=== PATIENT | female | born 1985 | race Hispanic/Latino ===

== ENCOUNTER 2016-09-03 12:45 | Emergency (ER) | payer OTHER ==
[~2016-09-03] VITALS: Ht 157.5 cm; Wt 77.3 kg
[~2016-09-03 12:45] MED LIST: BUTA1CAP39 PO; DOXY100T2 PO; HYDR50CA PO; LISI10TA PO; OMEP20TA86 PO
[2016-09-03 12:48] VITALS: BP 157/110; PULSE 104; RESP 15; O2SAT 100
--- NOTE | 2016-09-03 13:14 | ED.REPORT ---
HPI-Extremity Problem Lower Date of Service Sep 03, 2016 ED Provider: Manjeet Soler MD This is a 30 year old female presenting to the emergency department complaining of R knee swelling that began 3 days ago. Associated symptoms include numbness, fever, and chills. Denies nausea, SOB, vomiting, constipation, diarrhea, headache, cough, abdominal pain, or rashes. Nursing Notes Stated Complaint: RECHECK CELLULITIS/DVT Chief Complaint: Extremity Trauma Nursing Notes Reviewed: Yes Allergies: Coded Allergies: Penicillins (Verified Allergy, Severe, Anaphylaxis, 09/03/16) Scheduled Doxycycline Hyclate (Doxycycline Hyclate) 100 Mg Tablet 100 MG PO BID Lisinopril (Lisinopril) 10 Mg Tablet 10 MG PO DAILY Lisinopril (Lisinopril) 10 Mg Tablet 10 MG PO DAILY Omeprazole (Omeprazole) 20 Mg Tablet.dr 20 MG PO BID Scheduled PRN Butalbital/Acetamin/Caff 50-300-40 mg (Fioricet 50-300-40 mg) 1 Each Capsule 1 CAPSULE PO Q4H PRN PRN Headache Hydroxyzine Pamoate (Vistaril) 50 Mg Capsule 50 MG PO TID PRN PRN For Anxiety General Time Seen by MD: 13:07 Chief Complaint Knee injury right Hx Obtained From: Patient Arrived By: Walk-in Onset Occurred: 3 days ago Symptom Duration: Since onset Severity: Current: Mild Pertinent Negative: Pt denies other symptoms Recent Healthcare: No recent doctor visit, No recent hospitalization Similar Sx Previous: No Past Medical History Past Medical History IV drug use Reports: Hypertension Past Surgical History None reported Smoking History Current Some Day Smoker Social History Alcohol Use: "Social" Drug Use: IV drugs, Meth, THC Other Social History: Local resident Ambulatory Status Independent Review of Systems Constitutional: Denies: Chills, Fever Musculoskeletal: Reports: Extremity pain, Extremity swelling Skin: Reports Rash Neurologic: Denies: Headache Complete sys rev & neg: except as marked. GI: Denies: Abdominal pain, Nausea, Vomiting Physical Exam Initial Vital Signs Vital Signs (First) Date Time Temp Pulse Resp B/P Pulse Ox O2 Delivery O2 Flow Rate FiO2 09/03/16 12:48 36.7 104 15 157/110 100 Room Air Initial VS: Reviewed General/Constitutional: Well-developed, Well-nourished Head / Eyes: Atraumatic, Normocephalic, PERRL ENT: Mucous membranes moist, Conjunctiva normal, No scleral icterus Neck: Supple, Non-tender, Full range of motion Respiratory: Breath sounds normal, Clear to auscultation, No respiratory distress Cardiovascular: Regular rate & rhythm, Heart sounds normal, Intact distal pulses Abdomen / GI: Soft, Non-tender, No guarding, No rebound, No distention Upper Extremities: Vascular intact, Neuro intact, No swelling, No tenderness Skin: Warm, Dry, No cyanosis Neurologic: Alert, Oriented, Nonfocal Psychiatric: Mood/affect normal, Behavior normal, Normal thought content Lower Extremity / Pelvis / MS: Neurologic intact, Vascular intact Ankle / Foot: Full range of motion, Neurologic intact, Vascular intact Interpretation & Diagnostics VENOUS DUPLEX IMPRESSION: 1. No deep venous thrombosis identified within the right lower extremity. 2. Small joint effusion and Garg's cyst present. Dictated by: Julio STARKEY Interpreted: Otilia Gaytan MD on 09/03/2016 at 15:39 Transcribed by: JODI on 09/03/2016 at 15:40 Lab Results Interpretation Result Diagram: 09/03/16 1354 09/03/16 1354 Test 09/03/16 13:54 White Blood Count 9.4th/mm3 (3.8-10.1) Red Blood Count 3.94mil/mm3 (3.90-5.20) Hemoglobin 12.0g/dL (12.0-15.6) Hematocrit 35.6% (35.0-46.0) Mean Corpuscular Volume 90.4fL (81-100) Mean Corpuscular Hemoglobin 30.5pg (27.0-35.0) Mean Corpuscular Hemoglobin Concent 33.7% (32.0-37.0) Red Cell Distribution Width 13.1% (12.3-15.4) Platelet Count 356bil/L (150-400) Neutrophils (%) (Auto) 66.2% (40-74) Lymphocytes (%) (Auto) 24.6% (14-46) Monocytes (%) (Auto) 6.4% (4-12) Eosinophils (%) (Auto) 2.5% (0-5) Basophils (%) (Auto) 0.2% (0-3) Sodium Level 134mEq/L (134-144) Potassium Level 3.7mEq/L (3.5-5.2) Chloride Level 98mEq/L (97-108) Carbon Dioxide Level 27mmol/L (18-29) Blood Urea Nitrogen 11mg/dL (6-20) Creatinine 0.53mg/dL (0.57-1.00) Estimat Glomerular Filtration Rate 197mL/min (>59) Glucose Level 95mg/dL (60-99) Calcium Level 8.5mg/dL (8.5-10.1) Total Bilirubin 0.3mg/dL (0.0-1.2) Aspartate Amino Transf (AST/SGOT) 16U/L (0-50) Alanine Aminotransferase (ALT/SGPT) 14U/L (0-32) Alkaline Phosphatase 69U/L (25-150) C-Reactive Protein 0.5mg/dL (0.0-0.5) Total Protein 6.4g/dL (6.4-8.4) Albumin 3.8g/dL (3.4-5.0) Hold Shirley Top Tube Received (Received) Re-Eval/Medical Decision Med Decision/Clinical Course 30-year-old female IV drug user presenting with right knee swelling. Ultrasound confirms Garg's cyst. No blood clot. Labs normal inflammatory markers do not suspect infection. Recommend follow-up with primary doctor. Return precautions. Re-Evaluation/Progress : Time of Eval: 15:00 Re-Evaluation/Progress Note: Discussed lab results and plan for discharge, pt understands and agrees with plan, all questions addressed Counseled Regarding: Diagnosis, Lab results, Need for follow-up, When/why to return to ED Discharge & Departure Impression: Primary Impression: Garg's cyst of knee Laterality: right Qualified Code: M71.21 - Synovial cyst of popliteal space [Garg], right knee Disposition: Home Discharge Condition All VS Reviewed: Yes Condition: Stable Additional Instructions: Your ultrasound was reassuring, a dangerous cause for your symptoms was not identified today, you have a garg's cyst. Follow-up with your primary care provider, call today to schedule an appointment. Return to the emergency department for any new or worsening symptoms Referrals: [facility] Scribe Attestation Portions of this note were transcribed by Qamar Aquino. I, Dr. Soler personally performed the history, physical exam and medical decision-making; I reviewed and confirmed the accuracy of the information in the transcribed note. Signed by: zoë Diaz. 09/03/2016, 15:00. Manjeet Soler MD Sep 03, 2016 13:14 QAMAR AQUINO Sep 03, 2016 13:24
[2016-09-03 14:03] LABS: BASOPHILS % (AUTO) 0.2 % (0-3); EOSINOPHILS % (AUTO) 2.5 % (0-5); MONOCYTES % (AUTO) 6.4 % (4-12); Mean Corpuscular Hemoglobin 30.5 pg (27.0-35.0); Mean Corpuscular Volume 90.4 fL (81-100); NEUTROPHILS % (AUTO) 66.2 % (40-74); Platelet Count 356 bil/L (150-400)
--- NOTE | 2016-09-03 15:40 | DRSVH ---
PROCEDURE: US VEINOUS LEG DUPLEX UNILATERAL, RIGHT INDICATIONS: RLE swelling TECHNIQUE: Real-time imaging, as well as color and pulse Doppler interrogation, were performed of the lower extr emity deep veins from the inguinal ligament to the popliteal fossa. COMPARISON: None. FINDINGS: The deep veins are normally compressible, and free of intraluminal thrombus. Color and pu lse Doppler demonstrate normal phasic intraluminal flow. There is normal augmentation response to di stal compression maneuver. Small joint effusion and Garg's cyst present. IMPRESSION: 1. No deep venous thrombosis identified within the right lower extremity. 2. Small joint effusion and Garg's cyst present. Dictated by: Julio STARKEY Interpreted: Otilia Gaytan MD on 09/03/2016 at 15:39 Transcribed by: JODI on 09/03/2016 at 15:40 Approved by: Otilia Gaytan MD, PhD on 09/03/2016 at 16:59
== END 2016-09-03 15:25 | disposition home or self-care (01) ==
LOC: SED 12:45
DX: M71.21 Synovial cyst of popliteal space [Baker], right knee (principal); I10 Essential (primary) hypertension; F17.200 Nicotine dependence, unspecified, uncomplicated; F19.20 Other psychoactive substance dependence, uncomplicated; Z88.0 Allergy status to penicillin

== ENCOUNTER 2016-09-09 09:40 | Emergency (ER) | payer OTHER ==
[~2016-09-09] VITALS: Ht 157.5 cm; Wt 77.3 kg
[2016-09-09 09:46] VITALS: BP 170/124; PULSE 101; RESP 18; O2SAT 100
--- NOTE | 2016-09-09 11:21 | ED.REPORT ---
HPI-Chest Pain Under 40 Date of Service Sep 09, 2016 ED Provider: Santos Wiley DO History of Present Illness: Sakshi Mcleod is a 30 year old woman with a PMH of HTN, anxiety, and IV drug use who presents with a 1 week history of substernal chest pain with radiation to the left axilla and left upper back. She relates that this pain is worse with exertion, but is not aggravated by deep inspiration. She has no family history of sudden cardiac . She states that she has been trying to cut down on her drug use, and her last usage was a few days ago. She does not have a history of endocarditis. She further complains of an enlargin garg's cyst on her right knee, which is making it increasingly difficult to walk without pain. She does not have a PCP. Nursing Notes Stated Complaint: CYST Chief Complaint: Chest Pain Nursing Notes Reviewed: Yes Allergies: Coded Allergies: Penicillins (Verified Allergy, Severe, Anaphylaxis, 09/03/16) Scheduled Doxycycline Hyclate (Doxycycline Hyclate) 100 Mg Tablet 100 MG PO BID Lisinopril (Lisinopril) 10 Mg Tablet 10 MG PO DAILY Lisinopril (Lisinopril) 10 Mg Tablet 10 MG PO DAILY Omeprazole (Omeprazole) 20 Mg Tablet.dr 20 MG PO BID Scheduled PRN Butalbital/Acetamin/Caff 50-300-40 mg (Fioricet 50-300-40 mg) 1 Each Capsule 1 CAPSULE PO Q4H PRN PRN Headache Hydroxyzine Pamoate (Vistaril) 50 Mg Capsule 50 MG PO TID PRN PRN For Anxiety General Time Seen by MD: 10:30 Chief Complaint Chest pain Hx Obtained From: Patient Sudden in Onset?: No Onset Occurred: 1 week ago Context of Onset: Amphetamine use Symptom Duration: Waxes and wanes Location: : Chest left Quality: Aching, Throbbing Radiation: : Back Severity: Current: Mild Severity: Maximum: Moderate Recent Healthcare: No recent doctor visit Similar Sx Previous: No Risk Factors )( CAD Risk Stratification Amphetamine Hypertension TAD Risk Stratification No 1st degree relative, No Aortic valve disease, No Coarctation of aorta, No Ruthy-Danlos syndrome, No High intensity wt lifting, No Hypertension, No Inflamm dx / vasculitis, No Loeys-Aubrey syndrome, No Marfan's syndrome, No Other genetic predisp, No Pre-exist aortic aneurysm, No , No Turners Syndrome )( PE Risk Stratification No Coagulation Disorder, No Estrogen Medicine / BCP's, No Topock, No Immobilization, No Malignancy, No Other, No , No , No Previous DVT, No Previous PE, No Surgery Last 60 Days, No Trauma Past Medical History Past Medical History IV drug use HTN Anxiety Reports: Hypertension Past Surgical History None reported Smoking History Current Some Day Smoker Social History Alcohol Use: "Social" Drug Use: IV drugs, Meth, THC Other Social History: Local resident Ambulatory Status Independent Review of Systems Cardiovascular: Reports: Chest pain, Dyspnea on exertion Musculoskeletal: Reports: Back pain, Joint pain, Joint swelling Complete sys rev & neg: except as marked. Physical Exam Physical Exam Notes: Gen: A/O x3 pleasant cooperative woman in mild acute distress secondary to chest pain Neck: Supple, non-tender, no thyromegaly, no lymphadenopathy HEENT: PERRL, EOMI, no scleral icterus CV: RRR, no murmurs rubs or gallops Resp: Lungs CTA BL, no wheezing rales or rhonchi Abdomen: Soft, non-tender, no organomegaly Extr: No cyanosis clubbing or edema, muscle knots and tenderness in left suprascapular region Neuro: CN 2-12 grossly intact, no focal neurologic deficit Psych: Mood pleasant and appropriate, some anxiety. Initial Vital Signs Vital Signs (First) Date Time Temp Pulse Resp B/P Pulse Ox O2 Delivery O2 Flow Rate FiO2 09/09/16 09:46 36.9 101 18 170/124 100 Room Air Initial VS: Reviewed Interpretation & Diagnostics Lab Results Interpretation Result Diagram: 09/09/16 1149 09/09/16 1149 Test 09/09/16 11:07 09/09/16 11:49 09/09/16 11:50 09/09/16 12:29 Hold Urine Received (Received) White Blood Count 9.3th/mm3 (3.8-10.1) Red Blood Count 3.85mil/mm3 (3.90-5.20) Hemoglobin 11.7g/dL (12.0-15.6) Hematocrit 35.0% (35.0-46.0) Mean Corpuscular Volume 90.9fL (81-100) Mean Corpuscular Hemoglobin 30.4pg (27.0-35.0) Mean Corpuscular Hemoglobin Concent 33.4% (32.0-37.0) Red Cell Distribution Width 13.4% (12.3-15.4) Platelet Count 327bil/L (150-400) Neutrophils (%) (Auto) 64.4% (40-74) Lymphocytes (%) (Auto) 22.2% (14-46) Monocytes (%) (Auto) 8.6% (4-12) Eosinophils (%) (Auto) 4.4% (0-5) Basophils (%) (Auto) 0.2% (0-3) Sodium Level 137mEq/L (134-144) Potassium Level 3.8mEq/L (3.5-5.2) Chloride Level 104mEq/L (97-108) Carbon Dioxide Level 21mmol/L (18-29) Blood Urea Nitrogen 9mg/dL (6-20) Creatinine 0.46mg/dL (0.57-1.00) Estimat Glomerular Filtration Rate 232mL/min (>59) Glucose Level 98mg/dL (60-99) Calcium Level 7.9mg/dL (8.5-10.1) Magnesium Level 1.9mg/dL (1.6-2.6) Total Bilirubin 0.2mg/dL (0.0-1.2) Aspartate Amino Transf (AST/SGOT) 15U/L (0-50) Alanine Aminotransferase (ALT/SGPT) 14U/L (0-32) Alkaline Phosphatase 71U/L (25-150) Total Protein 6.1g/dL (6.4-8.4) Albumin 3.5g/dL (3.4-5.0) Hold Red Top Tube Received (Received) Hold Shirley Top Tube Received (Received) Troponin T < 0.010ug/L (0.0-0.011) Re-Eval/Medical Decision Med Decision/Clinical Course Patient with negative troponin, normal chest x-ray, and reproducible pain on sternal palpation. Likely non-cardiac chest pain with combined costro-condritis and concurrent muscle tension in the back from stress. Counseled Regarding: Diagnosis, Lab results, When/why to return to ED Discharge & Departure Shift Change Sign-Out Patient Care Transferred: No Discussed Complaint(s): Yes Laboratory Evaluation: Lab evaluation discussed Imaging Studies: Imaging discussed Response to Therapy: Improved Primary Impression: Non-cardiac chest pain Additional Impression: Garg's cyst of knee Laterality: right Qualified Code: M71.21 - Synovial cyst of popliteal space [Garg], right knee Disposition: Home Discharge Condition All VS Reviewed: Yes Condition: Stable Patient Instructions: Chest Pain (ED) Additional Instructions: There does not appear to be anything greatly concerning with your heart and lungs at this time. Most likely your pain is due to pain and inflammation of the chest wall and ribs, together with back pain from stress. I recommend that you take Ibuprofen as needed for pain, and establish care with a primary care doctor. If you like you can establish with myself Dr. Tarik Mar at the [facility]; I can probably see you on 10/08/16; I can call my office to fit you in. Referrals: NOPCP (PCP) Attending Statement The patient was seen and examined together with Dr. Mar on 09/08/16nd I have added additional information to the note above. Tarik Mar DO Sep 09, 2016 11:21 Santos Wiley DO Sep 09, 2016 13:17
--- NOTE | 2016-09-09 11:23 | DRSVH ---
PROCEDURE: X-RAY CHEST, TWO VIEWS ([id number]) INDICATIONS: chest pain TECHNIQUE: 2 views of the chest were acquired. COMPARISON: None. FINDINGS: Surgical changes and devices: None. Lungs and pleura: No pleural effusions or pneumothorax. Lungs are clear. Mediastinum: Mediastinal contours are normal. Heart size is normal. Bones and chest wall: No suspicious bony abnormalities. Soft tissues appear unremarkable. IMPRESSION: No acute cardiopulmonary disease process. Dictated by: Otilia Gaytan MD, PhD on 09/09/2016 at 11:20 Approved by: Otilia Gaytan MD, PhD on 09/09/2016 at 11:20
[2016-09-09 11:55] LABS: BASOPHILS % (AUTO) 0.2 % (0-3); EOSINOPHILS % (AUTO) 4.4 % (0-5); MONOCYTES % (AUTO) 8.6 % (4-12); Mean Corpuscular Hemoglobin 30.4 pg (27.0-35.0); Mean Corpuscular Volume 90.9 fL (81-100); NEUTROPHILS % (AUTO) 64.4 % (40-74); Platelet Count 327 bil/L (150-400)
[2016-09-09 12:00] VITALS: BP 142/99; PULSE 98; RESP 19; O2SAT 99
[2016-09-09 12:22] LABS: Magnesium 1.9 mg/dL (1.6-2.6)
[2016-09-09] MEDS ORDERED: LISI10TA PO (13:22)
== END 2016-09-09 13:25 | disposition home or self-care (01) ==
LOC: SED 09:40
DX: R07.89 Other chest pain (principal); M71.21 Synovial cyst of popliteal space [Baker], right knee; I10 Essential (primary) hypertension; F17.200 Nicotine dependence, unspecified, uncomplicated; Z88.0 Allergy status to penicillin

== ENCOUNTER 2016-10-19 07:11 | Emergency (ER) | payer OTHER ==
[~2016-10-19] VITALS: Ht 157.5 cm; Wt 67.7 kg
[2016-10-19 07:15] VITALS: BP 197/132; PULSE 103; RESP 18; O2SAT 97
--- NOTE | 2016-10-19 07:27 | ED.REPORT ---
HPI-Trauma Minor / Fall Date of Service Oct 19, 2016 ED Provider: Ana Laura Neely MD 31 year old female with a history of IV drug abuse and HTN presents to the ER accompanied by a male manager hydraulic complaining of head injury status post striking her head on a cabinet while cleaning yesterday morning. Associated symptoms include headache, dizziness, fatigue, and difficulty concentrating since the incident. Currently she also reports difficulty breathing, and states that she is having a panic attack. She is requesting a scan to "see if there is bleeding in her brain" and becomes very agitated and irritable upon further questioning regarding the mechanism of injury. Patient's last IV methamphetamine and heroin use was yesterday. Nursing Notes Stated Complaint: HEAD INJURY Chief Complaint: Head, Face, Neck Trauma Nursing Notes Reviewed: Yes Allergies: Coded Allergies: Penicillins (Verified Allergy, Severe, Anaphylaxis, 09/03/16) Scheduled Doxycycline Hyclate (Doxycycline Hyclate) 100 Mg Tablet 100 MG PO BID Lisinopril (Lisinopril) 10 Mg Tablet 10 MG PO DAILY Lisinopril (Lisinopril) 10 Mg Tablet 10 MG PO DAILY Lisinopril (Lisinopril) 10 Mg Tablet 10 MG PO DAILY Lisinopril (Lisinopril) 10 Mg Tablet 10 MG PO DAILY Omeprazole (Omeprazole) 20 Mg Tablet.dr 20 MG PO BID Scheduled PRN Butalbital/Acetamin/Caff 50-300-40 mg (Fioricet 50-300-40 mg) 1 Each Capsule 1 CAPSULE PO Q4H PRN PRN Headache Hydroxyzine Pamoate (Vistaril) 50 Mg Capsule 50 MG PO TID PRN PRN For Anxiety Ondansetron (Zofran) 4 Mg Tablet 4 MG PO Q4H PRN PRN For Nausea General Time Seen by MD: 07:26 Chief Complaint Head injury Hx Obtained From: Patient Arrived By: Walk-in Onset Occurred: Yesterday Symptom Duration: Since onset Caused by: Accidental Context: Occurred at: Home injury Location: Head Quality: Painful Severity: Current: Mild Severity: Maximum: Moderate Associated with: Reports: Headache, Denies: Loss of consciousness, Syncope Similar Sx Previous: No Past Medical History Past Medical History IV drug use HTN Anxiety Reports: Hypertension Past Surgical History None reported Smoking History Current Some Day Smoker Social History Alcohol Use: "Social" Drug Use: IV drugs, Meth, THC Other Social History: Local resident Ambulatory Status Independent Review of Systems Constitutional: Reports: Fatigue Respiratory: Reports: Shortness of breath Musculoskeletal: Reports: Neck pain, Denies: Back pain, Extremity pain, Joint pain, Lumbar pain, Thoracic pain Neurologic: Reports: Confusion, Dizziness, Headache, Denies: Slurred speech, Syncope Complete sys rev & neg: except as marked. Psychiatric: Reports: Agitation, Anxiety Physical Exam Initial Vital Signs Vital Signs (First) Date Time Temp Pulse Resp B/P Pulse Ox O2 Delivery O2 Flow Rate FiO2 10/19/16 07:15 36.7 103 18 197/132 97 10/19/16 10:26 Room Air Initial VS: Reviewed Head / Eyes: Atraumatic, Normocephalic Extremities: Vascular intact, Neuro intact, No swelling, No tenderness Skin: Warm, Dry, No cyanosis Neurologic: Alert, Oriented, Nonfocal General/Constitutional: Awake, Alert, Well developed, Well nourished Agitated and irritable, can be refocused. Neck: Atraumatic, Supple, Full range of motion, No swelling Left paraspinous tenderness C2 and C3, and over the Left occipital insertion. Head / Eyes: Normocephalic R black eye Contusion right side of forehead, with small indent Respiratory / Chest: Breath sounds NL, Breath sounds = bilat, No respiratory distress, No rales, No rhonchi, No wheezing No obvious bruising. Cardiovascular: Regular rhythm, Heart sounds NL, Cap refill not delayed, Peripheral circulation NL Heart Rate / Rhythm: Positive: Tachycardia Back: Full range of motion, Non-tender, No midline vertebral tend, No paraspinal tenderness Muscle Spasm / ROM: Positive: Trapezius tender L Left trapezius muscle spasm. No obvious bruising. Upper Extremity / MS: Full range of motion, Non-tender, No deformity, Neurologic intact, Vascular intact No obvious bruising. Interpretation & Diagnostics CT Head Interpretation IMPRESSION: No breakthrough a normal injury found, no intracranial hemorrhage identified. No sign of skull fracture. A small degree of chronic appearing mucosal thickening involves the ethmoid air cells on the left and the maxillary sinuses bilaterally but no acute sinusitis is suspected. Dictated by: Omi Platt M.D. on 10/19/2016 at 8:21 Approved by: Omi Platt M.D. on 10/19/2016 at 8:22 Study: Head CT no contrast Interpretation / Wet Read by: Interpret - Radiologist CT C-Spine Interpretation IMPRESSION: No trauma found, source of left-sided neck pain after injury is not seen. Dictated by: Omi Platt M.D. on 10/19/2016 at 8:22 Approved by: Omi Platt M.D. on 10/19/2016 at 8:24 Study type: CT no contrast Interpretation / Wet Read by: Interpret - Radiologist Re-Eval/Medical Decision Re-Evaluation/Progress : Time of Eval: 09:46 Re-Evaluation/Progress Note: Discussed imaging results and plan to discharge. Patient is amenable to the plan. Return precautions given. All other questions addressed. Counseled Regarding: Diagnosis, Lab results, Need for follow-up, When/why to return to ED Discharge & Departure Impression: Primary Impression: Concussion Additional Impressions: Post concussion syndrome Acute strain of neck muscle Hypertension Ruled Out: Intracranial bleed Disposition: Home Discharge Condition All VS Reviewed: Yes Condition: Stable Patient Instructions: Concussion (DC) Additional Instructions: Your evaluation today was reassuring. There were no signs of bleeding in your brain on your head CT scan, and your neck CT did not indicate any fractures. I believe you are experiencing symptoms of a concussion, and strain to the muscles in your neck. You may have persistent nausea due to the concussion. You can use zofran to help with this. Go home and rest. Avoid any activities that may result in further trauma to your head or neck. Use Tylenol as directed for pain. Apply ice and heat to your neck for pain. You have asked to refill your 10mg lisinopril and I have done that. Both prescriptions have been electronically sent to [facility]. You DO need to follow up with a primary care doctor about your blood pressure. I've given you contact information for our residency clinic. Return to the ER if you develop uncontrollable headache, vomiting, changes in vision, loss of consciousness, or any other concerning symptoms. Referrals: NOPCP (PCP) [facility] Scribe Attestation Portions of this note were transcribed by Joe Huitron. I, Dr. Neely, personally performed the history, physical exam and medical decision-making; I reviewed and confirmed the accuracy of the information in the transcribed note. Signed by: Barry Nayak, 10/19/2016 and 10:03 copies to: [facility] Ana Laura Neely MD Oct 19, 2016 07:27 JOE HUITRON Oct 19, 2016 07:34
--- NOTE | 2016-10-19 08:23 | DRSVH ---
PROCEDURE: CT BRAIN WITHOUT CONTRAST ([id number]) INDICATIONS: trauma TECHNIQUE: Noncontrast 4.5 mm thick angled axial sections acquired from the foramen magnum to the vertex, with c oronal reformats. COMPARISON: None. FINDINGS: Image quality: Excellent. CSF spaces: Basal cisterns are patent. No extra-axial fluid collections. Ventricles are normal in size and shape. Brain: No midline shift. No intracranial masses or hemorrhage. Lewis-white matter interface is norm al. Skull and face: Calvarium and visualized facial bones are intact, without suspicious lesions. Sinuses: Visualized sinuses and mastoids are clear except for minimal mucosal thickening chronic in appearance involving the left ethmoid air cells and the maxillary sinuses bilaterally. IMPRESSION: No breakthrough a normal injury found, no intracranial hemorrhage identified. No sign of skull fracture. A small degree of chronic appearing mucosal thickening involves the ethmoid air cells on the left and the maxillary sinuses bilaterally but no acute sinusitis is suspected. Dictated by: Omi Platt M.D. on 10/19/2016 at 8:21 Approved by: Omi Platt M.D. on 10/19/2016 at 8:22
--- NOTE | 2016-10-19 08:26 | DRSVH ---
PROCEDURE: CT CERVICAL SPINE WITHOUT CONTRAST ([id number]) INDICATIONS: trauma TECHNIQUE: Noncontrast 3 mm thick sections acquired from the skull base to the T4 level. Sagittal and coronal r eformats were then constructed. For radiation dose reduction, the following was used: automated exp osure control, adjustment of mA and/or kV according to patient size. COMPARISON: None. FINDINGS: Image quality: Excellent. Bones: No fractures or dislocations. Visualized superior ribs are intact. Soft tissues: Prevertebral soft tissues are normal in thickness. No paravertebral hematomas. No ap ical pneumothoraces. IMPRESSION: No trauma found, source of left-sided neck pain after injury is not seen. Dictated by: Omi Platt M.D. on 10/19/2016 at 8:22 Approved by: Omi Platt M.D. on 10/19/2016 at 8:24
[2016-10-19] MEDS ORDERED: LISI10TA PO (09:59)
[2016-10-19] MEDS ORDERED: ONDA4TAB6 PO (09:59)
[2016-10-19 10:26] VITALS: BP 160/111; PULSE 94; RESP 15; O2SAT 100
[2016-10-19 10:27] VITALS: BP 160/111; PULSE 94; RESP 15; O2SAT 100
== END 2016-10-19 10:29 | disposition home or self-care (01) ==
LOC: SED 07:11
DX: S06.0X9A Concussion with loss of consciousness of unspecified duration, initial encounter (principal); S16.1XXA Strain of muscle, fascia and tendon at neck level, initial encounter; W22.8XXA Striking against or struck by other objects, initial encounter; Y93.E5 Activity, floor mopping and cleaning; Y92.009 Unspecified place in unspecified non-institutional (private) residence as the place of occurrence of the external cause; Y99.8 Other external cause status; F07.81 Postconcussional syndrome; I10 Essential (primary) hypertension; F17.200 Nicotine dependence, unspecified, uncomplicated; Z79.899 Other long term (current) drug therapy; Z88.0 Allergy status to penicillin

== ENCOUNTER 2017-01-27 12:41 | Emergency (ER) | payer OTHER ==
[~2017-01-27] VITALS: Ht 154.9 cm; Wt 75.0 kg
[~2017-01-27 12:41] MED LIST changes: +ONDA4TAB6 PO
[2017-01-27 12:48] VITALS: BP 168/111; PULSE 95; RESP 13; O2SAT 98
--- NOTE | 2017-01-27 12:51 | ED.REPORT ---
HPI-Chest Pain 40 and Over Date of Service Jan 27, 2017 ED Provider: Santos Munson DO The pt is a 31 y/o female w/ a hx of IV methamphetamine use, HTN, and anxiety presenting to the ED via EMS complaining of severe chest pain. She describes the pain being quick and sharp occasionally and a pressure currently. When the medics arrived the pts BP was 200s/100s. 324 mg ASA and 2 SL Nitro was given which provided some relief. The pt admitted to the nurses that she smoked meth just prior to arrival. The pt has stopped taking her Lisinopril medication because she was unable to refill her prescription. Nursing Notes Stated Complaint: CHEST PAIN Chief Complaint: Chest Pain Nursing Notes Reviewed: Yes Allergies: Coded Allergies: Penicillins (Verified Allergy, Severe, Anaphylaxis, 09/03/16) Scheduled Doxycycline Hyclate (Doxycycline Hyclate) 100 Mg Tablet 100 MG PO BID Lisinopril (Lisinopril) 10 Mg Tablet 10 MG PO DAILY Lisinopril (Lisinopril) 10 Mg Tablet 10 MG PO DAILY Lisinopril (Lisinopril) 10 Mg Tablet 10 MG PO DAILY Lisinopril (Lisinopril) 10 Mg Tablet 10 MG PO DAILY Lisinopril (Lisinopril) 10 Mg Tablet 10 MG PO DAILY Omeprazole (Omeprazole) 20 Mg Tablet.dr 20 MG PO BID Scheduled PRN Butalbital/Acetamin/Caff 50-300-40 mg (Fioricet 50-300-40 mg) 1 Each Capsule 1 CAPSULE PO Q4H PRN PRN Headache Hydroxyzine Pamoate (Vistaril) 50 Mg Capsule 50 MG PO TID PRN PRN For Anxiety Ondansetron (Zofran) 4 Mg Tablet 4 MG PO Q4H PRN PRN For Nausea General Time Seen by MD: 12:51 Chief Complaint Chest pain Hx Obtained From: Patient, EMS Arrived By: Ambulance Sudden in Onset?: Yes Onset Occurred: Just prior to arrival Symptom Duration: Since onset Recent Healthcare: No recent hospitalization, Recent doctor visit Similar Sx Previous: Yes Past Medical History Past Medical History IV drug use HTN Anxiety Reports: Hypertension Past Surgical History None reported Smoking History Current Some Day Smoker Social History Alcohol Use: "Social" Drug Use: IV drugs, Meth, THC Other Social History: Local resident Ambulatory Status Independent Review of Systems Cardiovascular: Reports: Chest pain Complete sys rev & neg: except as marked. Physical Exam Initial Vital Signs Vital Signs (First) Date Time Temp Pulse Resp B/P Pulse Ox O2 Delivery O2 Flow Rate FiO2 01/27/17 12:48 36.4 95 13 168/111 98 Room Air Initial VS: Reviewed Head / Eyes: Atraumatic, Normocephalic, PERRL ENT: Mucous membranes moist, Conjunctiva normal, No scleral icterus Neck: Supple, Non-tender, Full range of motion Extremities: Vascular intact, Neuro intact, No swelling, No tenderness Skin: Warm, Dry, No cyanosis Neurologic: Alert, Oriented, Nonfocal Psychiatric: Mood/affect normal, Behavior normal, Normal thought content General/Constitutional: Awake, Alert Distress / Hydration: Positive: Distress mild Respiratory / Chest: Breath sounds NL, Breath sounds = bilat, No crepitus Reproducible chest wall tenderness Cardiovascular: Heart rate NL, Regular rhythm, Heart sounds NL Hypertensive Abdomen: Atraumatic, Soft, Non-tender Interpretation & Diagnostics Lab Results Interpretation Result Diagram: 01/27/17 1328 01/27/17 1305 Test 01/27/17 13:05 01/27/17 13:10 01/27/17 13:28 Sodium Level 137mEq/L (134-144) Potassium Level 3.7mEq/L (3.5-5.2) Chloride Level 100mEq/L (97-108) Carbon Dioxide Level 24mmol/L (18-29) Blood Urea Nitrogen 12mg/dL (6-20) Creatinine 0.57mg/dL (0.57-1.00) Estimat Glomerular Filtration Rate 180mL/min (>59) Glucose Level 86mg/dL (60-99) Calcium Level 9.2mg/dL (8.5-10.1) Magnesium Level 1.8mg/dL (1.6-2.6) Total Bilirubin 0.2mg/dL (0.0-1.2) Aspartate Amino Transf (AST/SGOT) 23U/L (0-50) Alanine Aminotransferase (ALT/SGPT) 18U/L (0-32) Alkaline Phosphatase 74U/L (25-150) Troponin T < 0.010ug/L (0.0-0.011) Total Protein 7.7g/dL (6.4-8.4) Albumin 4.2g/dL (3.4-5.0) Hold Urine Received (Received) White Blood Count 11.6th/mm3 (3.8-10.1) Red Blood Count 3.86mil/mm3 (3.90-5.20) Hemoglobin 11.5g/dL (12.0-15.6) Hematocrit 34.6% (35.0-46.0) Mean Corpuscular Volume 89.6fL (81-100) Mean Corpuscular Hemoglobin 29.8pg (27.0-35.0) Mean Corpuscular Hemoglobin Concent 33.2% (32.0-37.0) Red Cell Distribution Width 13.7% (12.3-15.4) Platelet Count 310bil/L (150-400) Neutrophils (%) (Auto) 68.0% (40-74) Lymphocytes (%) (Auto) 19.2% (14-46) Monocytes (%) (Auto) 9.5% (4-12) Eosinophils (%) (Auto) 2.8% (0-5) Basophils (%) (Auto) 0.3% (0-3) ECG Interpretation ECG Interpretation: Rate 88 NSR Time: 13:00 Interpreted by: ED physician Re-Eval/Medical Decision Med Decision/Clinical Course Chest pain and associated hypertension after using methamphetamine. Lungs are clear ; chest pain is reproducible on the chest wall. Unlikely to be a pneumothorax. Labs reassuring, blood pressure improved after Ativan. lisinopril prescribed. Return and follow-up precautions given Source of Hx: Old records Time of Eval: 14:09 Re-Evaluation/Progress Note: Pt rechecked. Informed pt of plan for treatment. Pt understands and agrees with plan for treatment. F/U instructions and RTER warnings given. All questions addressed. Differential Diagnosis: Positive: Acute coronary syndrome, Acute myocardial infarct, Anxiety disorder, Bronchitis, Chest pain, acute, Congestive heart failure, Costochondritis, Musculoskeletal pain, Myocardial infarction, Pulmonary edema, Unstable angina Counseled Regarding: Diagnosis, Lab results, Need for follow-up, When/why to return to ED Discharge & Departure Primary Impression: Hypertension Hypertension type: unspecified secondary hypertension Qualified Code: I15.9 - Secondary hypertension, unspecified Additional Impression: Chest pain Chest pain type: unspecified Qualified Code: R07.9 - Chest pain, unspecified Disposition: Home Discharge Condition All VS Reviewed: Yes Condition: Stable Additional Instructions: Your labs are reassuring. It does not appear that you are having a heart attack. Avoid alcohol or drug use. Continue lisinopril. Return to the ER as needed for worsening symptoms. Referrals: [facility] Scribe Attestation Portions of this note were transcribed by Raoul Ashby. I, Dr. Munson personally performed the history, physical exam and medical decision-making; I reviewed and confirmed the accuracy of the information in the transcribed note. copies to: [facility] Santos Wiley DO Jan 27, 2017 12:51 Raoul Ashby Jan 27, 2017 13:28
[2017-01-27 13:31] LABS: TROPONIN T < 0.010 ug/L (0.0-0.011)
[2017-01-27 13:42] LABS: BASOPHILS % (AUTO) 0.3 % (0-3); EOSINOPHILS % (AUTO) 2.8 % (0-5); MONOCYTES % (AUTO) 9.5 % (4-12); Mean Corpuscular Hemoglobin 29.8 pg (27.0-35.0); Mean Corpuscular Volume 89.6 fL (81-100); Platelet Count 310 bil/L (150-400)
[2017-01-27 13:42] LABS: Magnesium 1.8 mg/dL (1.6-2.6)
[2017-01-27] MEDS ORDERED: LISI10TA PO (14:02)
[2017-01-27 16:05] VITALS: BP 147/109; PULSE 86; RESP 12; O2SAT 100
[2017-01-27 17:10] VITALS: BP 146/100; PULSE 85; RESP 16; O2SAT 97
== END 2017-01-27 17:12 | disposition home or self-care (01) ==
LOC: EDBD 12:41 → EDUNIT# 12:41 → SED 12:41
DX: I15.9 Secondary hypertension, unspecified (principal); R07.89 Other chest pain; F41.9 Anxiety disorder, unspecified; F17.200 Nicotine dependence, unspecified, uncomplicated; Z88.0 Allergy status to penicillin
CPT/HCPCS: 36415; 80053; 81002; 81025; 83735; 84484; 85025; 93005; 96374; 99285; J2060

== ENCOUNTER 2017-02-02 00:53 | Emergency (ER) | payer OTHER ==
[~2017-02-02] VITALS: Ht 154.9 cm; Wt 68.2 kg
[2017-02-02 01:02] VITALS: BP 173/111; PULSE 104; RESP 20; O2SAT 99
--- NOTE | 2017-02-02 01:02 | ED.REPORT ---
HPI-General Illness Date of Service Feb 02, 2017 ED Provider: Dr. Salazar 31 y/o female with a hx of IV methamphetamine use, HTN, and anxiety presents to the ED complaining of waxing and waning stabbing left shoulder pain that goes through her to the left side of the chest, onset a couple of months ago. Her pain has been gradually worsening. Associated sx include nausea, vomiting, diarrhea and subjective fever. She denies cough, chills, hematochezia and dysuria. She denies using any other street drug. The pt states "I've been here a lot and no one has told me about my blood results. I think I have an infection in my blood." Nursing Notes Stated Complaint: VOMITING,FEVER Nursing Notes Reviewed: Yes Allergies: Coded Allergies: Penicillins (Verified Allergy, Severe, Anaphylaxis, 09/03/16) Scheduled Doxycycline Hyclate (Doxycycline Hyclate) 100 Mg Tablet 100 MG PO BID Lisinopril (Lisinopril) 10 Mg Tablet 10 MG PO DAILY Lisinopril (Lisinopril) 10 Mg Tablet 10 MG PO DAILY Lisinopril (Lisinopril) 10 Mg Tablet 10 MG PO DAILY Lisinopril (Lisinopril) 10 Mg Tablet 10 MG PO DAILY Lisinopril (Lisinopril) 10 Mg Tablet 10 MG PO DAILY Omeprazole (Omeprazole) 20 Mg Tablet.dr 20 MG PO BID Scheduled PRN Butalbital/Acetamin/Caff 50-300-40 mg (Fioricet 50-300-40 mg) 1 Each Capsule 1 CAPSULE PO Q4H PRN PRN Headache Hydroxyzine Pamoate (Vistaril) 50 Mg Capsule 50 MG PO TID PRN PRN For Anxiety Ondansetron (Zofran) 4 Mg Tablet 4 MG PO Q4H PRN PRN For Nausea General Time Seen by MD: 01:01 Chief Complaint Other (left shoulder pain) Hx Obtained From: Patient Arrived By: Walk-in Sudden in Onset?: No Onset Occurred: More than a week ago... (2 months) Symptom Duration: Waxes and wanes Location: : Shoulder left Quality: Painful Severity: Current: Moderate Severity: Maximum: Moderate Recent Healthcare: Recent doctor visit Similar Sx Previous: No Past Medical History Past Medical History IV drug use HTN Anxiety Past Surgical History None reported Smoking History Current Some Day Smoker Social History Alcohol Use: "Social" Drug Use: IV drugs, Meth, THC Other Social History: Local resident Ambulatory Status Independent Review of Systems Full Review of Systems Constitutional: Reports: Fever (subjective ), Denies: Chills Respiratory: Denies: Non-productive cough Cardiovascular: Reports: Chest pain GI: Reports: Diarrhea, Nausea, Vomiting, Denies: Hematochezia Female: Denies: Dysuria Musculoskeletal: Reports: Extremity pain (left shoulder pain) Complete sys rev & neg: except as marked. Physical Exam Vital Signs Vital Signs Date Time Temp Pulse Resp B/P Pulse Ox O2 Delivery O2 Flow Rate FiO2 02/02/17 04:16 36.9 99 18 160/90 99 Room Air 02/02/17 01:02 37.0 104 20 173/111 99 Room Air Initial VS: Reviewed Neck: Supple, Non-tender, Full range of motion Respiratory: Breath sounds normal, Clear to auscultation, No respiratory distress Cardiovascular: Regular rate & rhythm, Heart sounds normal, Intact distal pulses Abdomen / GI: Soft, Non-tender, No guarding, No rebound, No distention Extremities: Vascular intact, Neuro intact, No swelling, No tenderness Skin: Warm, Dry, No cyanosis Neurologic: Alert, Oriented, Nonfocal General/Constitutional: Awake, Alert Behavior: Positive: Anxious Head / Eyes: Atraumatic, Normocephalic, PERRL, No scleral icterus, Conjunctiva NL No flame hemorrhage Wrist / Hand: Atraumatic, Full range of motion, No deformity, Neurologic intact , Vascular intact No flame hemorrhages in nail beds. No osler's nodes Interpretation & Diagnostics Lab Results Interpretation Result Diagram: 02/02/17 0128 02/02/17 0128 Test 02/02/17 01:28 02/02/17 01:55 White Blood Count 8.9th/mm3 (3.8-10.1) Red Blood Count 4.17mil/mm3 (3.90-5.20) Hemoglobin 12.4g/dL (12.0-15.6) Hematocrit 36.5% (35.0-46.0) Mean Corpuscular Volume 87.5fL (81-100) Mean Corpuscular Hemoglobin 29.7pg (27.0-35.0) Mean Corpuscular Hemoglobin Concent 34.0% (32.0-37.0) Red Cell Distribution Width 14.0% (12.3-15.4) Platelet Count 358bil/L (150-400) Neutrophils (%) (Auto) 59.0% (40-74) Lymphocytes (%) (Auto) 27.9% (14-46) Monocytes (%) (Auto) 8.4% (4-12) Eosinophils (%) (Auto) 4.2% (0-5) Basophils (%) (Auto) 0.3% (0-3) Erythrocyte Sedimentation Rate 42mm/hr (0-32) Prothrombin Time 10.0sec (8.1-12.5) Prothromb Time International Ratio 0.94ratio Activated Partial Thromboplast Time 29.9sec (22.8-33.0) Sodium Level 138mEq/L (134-144) Potassium Level 3.8mEq/L (3.5-5.2) Chloride Level 102mEq/L (97-108) Carbon Dioxide Level 23mmol/L (18-29) Blood Urea Nitrogen 14mg/dL (6-20) Creatinine 0.58mg/dL (0.57-1.00) Estimat Glomerular Filtration Rate 176mL/min (>59) Glucose Level 81mg/dL (60-99) Lactic Acid Level 1.1mmol/L (0.4-2.0) Calcium Level 8.7mg/dL (8.5-10.1) Phosphorus Level 3.1mg/dL (2.5-4.9) Magnesium Level 1.9mg/dL (1.6-2.6) Total Bilirubin 0.2mg/dL (0.0-1.2) Aspartate Amino Transf (AST/SGOT) 18U/L (0-50) Alanine Aminotransferase (ALT/SGPT) 21U/L (0-32) Alkaline Phosphatase 66U/L (25-150) Troponin T 0.010ug/L (0.0-0.011) Total Protein 7.3g/dL (6.4-8.4) Albumin 4.0g/dL (3.4-5.0) Procalcitonin 0.15ng/mL (0.00-0.08) Urine Color Yellow (YELLOW) Urine Appearance Hazy (CLEAR,HAZY) Urine pH 6.0 (5.0-8.0) Urine Specific Norvell 1.025 (1.003-1.035) Urine Protein Negativemg/dL (NEG,TRACE) Urine Glucose (UA) Negativemg/dL (NEGATIVE) Urine Ketones Negativemg/dL (NEGATIVE) Urine Occult Blood Negative (NEGATIVE) Urine Nitrite Negative (NEGATIVE) Urine Bilirubin Negative (NEGATIVE) Urine Urobilinogen Normalmg/dL (NORMAL) Urine Leukocyte Esterase Negative (NEGATIVE) Urine RBC 0-2/hpf (0-2) Urine WBC 0-5/hpf (0-5) Urine Epithelial Cells Moderate/hpf (NONE-MOD) Urine Crystals None seen (NONE SEEN) Urine Bacteria Few/hpf (NONE-FEW) Urine Hyaline Casts Occasional/lpf (NONE) Urine Granular Casts None seen (NONE SEEN) Urine Waxy Casts None seen (NONE SEEN) Urine Red Blood Cell Casts None seen (NONE SEEN) Urine White Blood Cell Casts None seen (NONE SEEN) Urine Mucus None seen (None Seen) Urine Trichomonas None seen (NONE SEEN) Urine Yeast None (NONE SEEN) Urine Culture Reflexed Not indicated X-Ray Chest Interpretation Chest Xray Interpretation: Normal View: Portable, AP & lat Interpretation / Wet Read by: Wet read ED physician Re-Eval/Medical Decision Med Decision/Clinical Course 31-year-old with methamphetamine addiction presents multiple times with anxieties about various symptoms. She is convinced she has a blood infection and other disasters that or not supported by investigations here. She is relieved to discover hepatitis C is negative, her HIV is negative, and previous blood cultures of the negative. Blood cultures are done pending here tonight. There are no primary or secondary signs of sepsis, although her Google search convinced her that there was precisely what she had. She is referred to crisis for meth rehabilitation resources. I had a long discussion with her about her chronic anxiety and the fact that this is the manifestation of chronic depression. This needs to be addressed and she is referred to the resident clinic. When strongly support treatment with antidepressants initially both reduce her meth craving and to address her long-term dysphoric depression. Source of Hx: Old records Time of Eval: 03:56 Re-Evaluation/Progress Note: Rechecked pt. Discussed lab results, imaging results, diagnosis and plan to discharge. Pt understands and agrees with the plan. F/U instruction and RTER warning given. All questions addressed. Counseled Regarding: Diagnosis, Lab results, Need for follow-up, When/why to return to ED Discharge & Departure Primary Impression: Non-cardiac chest pain Additional Impressions: Methamphetamine abuse Anxiety Depression Disposition: Home Discharge Condition All VS Reviewed: Yes Condition: Stable Patient Instructions: Methamphetamine Abuse (ED) Additional Instructions: I reviewed your various labs from the recent past, and there were no significant positive findings. Your cultures were negative. Your HIV test was negative. Her hepatitis C test was negative. There are no findings tonight to explain your chest pain, but no indication of a cardiac problem and no indication of a blood infection. We have blood cultures pending, and they will be available tomorrow. Follow-up at the residency clinic as planned. Call the crisis line for detox referrals. [phone]. Return if any immediate issues. Referrals: [facility] Scribe Attestation Portions of this note were transcribed by Gurmeet Mclaughlin. I,, personally performed the history, physical exam and medical decision-making;I reviewed and confirmed the accuracy of the information in the transcribed note. Signed by Barry Ramirez. 02/02/17 copies to: [facility] Fernie Salazar MD Feb 02, 2017 01:02 Gurmeet Mclaughlin Feb 02, 2017 01:13
[2017-02-02] MEDS: Ondansetron 2 mg/mL 2 mL Inj IVPUSH ONE ×2 (01:36→01:59)
[2017-02-02 01:39] LABS: BASOPHILS % (AUTO) 0.3 % (0-3); EOSINOPHILS % (AUTO) 4.2 % (0-5); MONOCYTES % (AUTO) 8.4 % (4-12); Mean Corpuscular Hemoglobin 29.7 pg (27.0-35.0); Mean Corpuscular Volume 87.5 fL (81-100); Platelet Count 358 bil/L (150-400)
[2017-02-02] MEDS ORDERED: LORazepam 1 mg Tablet PO ONE (01:40)
[2017-02-02 01:58] LABS: ERYTHROCYTE SEDIMENTATION RATE 42 mm/hr (0-32)
[2017-02-02 02:01] LABS: INR 0.94 ratio
[2017-02-02 02:07] LABS: TROPONIN T 0.01 ug/L (0.0-0.011)
[2017-02-02 02:08] LABS: APPEARANCE,URINE HAZY (CLEAR,HAZY); COLOR,URINE YELLOW (YELLOW); OCCULT BLOOD,URINE NEGATIVE (NEGATIVE); UROBILINOGEN,URINE NORMAL (NORMAL)
[2017-02-02 02:20] LABS: Magnesium 1.9 mg/dL (1.6-2.6); Phosphorus 3.1 mg/dL (2.5-4.9)
[2017-02-02 04:16] VITALS: BP 160/90; PULSE 99; RESP 18; O2SAT 99
--- NOTE | 2017-02-02 10:53 | DRSVH ---
PROCEDURE: X-RAY CHEST, TWO VIEWS ([id number]) INDICATIONS: CHEST PAIN TECHNIQUE: 2 views of the chest were acquired. COMPARISON: [facility], CR, XR CHEST 2VW, 09/09/2016, 10:45. FINDINGS: Surgical changes and devices: None. Lungs and pleura: No pleural effusions or pneumothorax. Lungs are clear. Mediastinum: Mediastinal contours are normal. Heart size is normal. Bones and chest wall: No suspicious bony abnormalities. Soft tissues appear unremarkable. IMPRESSION: No acute cardiopulmonary disease. Dictated by: [facility] Interpreted: Morgan Doss MD on 02/02/2017 at 8:50 Approved by: Morgan Doss M.D. on 02/02/2017 at 10:51
== END 2017-02-02 04:17 | disposition home or self-care (01) ==
LOC: SED 00:53
DX: R07.89 Other chest pain (principal); F15.10 Other stimulant abuse, uncomplicated; F41.9 Anxiety disorder, unspecified; F32.9 Major depressive disorder, single episode, unspecified; F17.200 Nicotine dependence, unspecified, uncomplicated; I10 Essential (primary) hypertension; Z88.0 Allergy status to penicillin
CPT/HCPCS: 36415; 71020; 80053; 81000; 83605; 83735; 84100; 84145; 84484; 85025; 85610; 85651; 85730; 87040; 96374; 99285; J2405

== ENCOUNTER 2017-03-17 19:11 | Emergency (ER) | payer OTHER ==
[~2017-03-17] VITALS: Ht 154.9 cm; Wt 66.4 kg
[2017-03-17 19:18] VITALS: BP 189/122; PULSE 103; RESP 18; O2SAT 99
--- NOTE | 2017-03-17 19:24 | ED.REPORT ---
HPI-Allergic Reaction Date of Service Mar 17, 2017 ED Provider: Felice Russ DO A 31 year old female with a history of IV drug use, hypertension and anxiety presents to the ED complaining of a possible allergic reaction. The pt accidentally mixed methamphetamines with vinegar this afternoon and injected it. She "tasted it immediately and stopped." Since that time, the pt has noticed difficulty swallowing in addition to tingling, pain and itching in the arm near the injection site. The pt also states that she is feeling very anxious. She has no history of similar symptoms. Nursing Notes Stated Complaint: THROAT CLOSING, TINGLING FEELING Chief Complaint: Allergic Reaction Nursing Notes Reviewed: Yes Allergies: Coded Allergies: Penicillins (Verified Allergy, Severe, Anaphylaxis, 03/17/17) Scheduled Doxycycline Hyclate (Doxycycline Hyclate) 100 Mg Tablet 100 MG PO BID Lisinopril (Lisinopril) 10 Mg Tablet 10 MG PO DAILY Lisinopril (Lisinopril) 10 Mg Tablet 10 MG PO DAILY Lisinopril (Lisinopril) 10 Mg Tablet 10 MG PO DAILY Lisinopril (Lisinopril) 10 Mg Tablet 10 MG PO DAILY Lisinopril (Lisinopril) 10 Mg Tablet 10 MG PO DAILY Omeprazole (Omeprazole) 20 Mg Tablet.dr 20 MG PO BID Scheduled PRN Butalbital/Acetamin/Caff 50-300-40 mg (Fioricet 50-300-40 mg) 1 Each Capsule 1 CAPSULE PO Q4H PRN PRN Headache Hydroxyzine Pamoate (Vistaril) 50 Mg Capsule 50 MG PO TID PRN PRN For Anxiety Ondansetron (Zofran) 4 Mg Tablet 4 MG PO Q4H PRN PRN For Nausea General Time Seen by MD: 19:23 Chief Complaint Allergic reaction Hx Obtained From: Patient Arrived By: Walk-in Onset Occurred: 1 - 4 hours ago Symptom Duration: Since onset Recent Healthcare: Recent doctor visit Similar Sx Previous: No Past Medical History Past Medical History IV drug use Hypertension Anxiety Past Surgical History None reported Smoking History Current Some Day Smoker Social History Alcohol Use: "Social" Drug Use: IV drugs, Meth, THC Other Social History: Local resident Ambulatory Status Independent Review of Systems Review of Systems Note: tingling, pain and itching near the injection site difficulty swallowing Respiratory: Denies: Non-productive cough, Shortness of breath GI: Denies: Abdominal pain, Diarrhea, Vomiting Complete sys rev & neg: except as marked. Musculoskeletal: Denies: Back pain, Neck pain Psychiatric: Reports: Anxiety Physical Exam Initial Vital Signs Vital Signs (First) Date Time Temp Pulse Resp B/P Pulse Ox O2 Delivery O2 Flow Rate FiO2 03/17/17 19:18 37.0 103 18 189/122 99 Room Air Initial VS: Reviewed General/Constitutional: Awake, Alert Respiratory / Chest: Atraumatic, Breath sounds NL, Breath sounds = bilat, No respiratory distress Cardiovascular: Heart rate NL, Regular rhythm, Heart sounds NL Skin: Color NL, Warm, Dry Head / Eyes: Atraumatic, Normocephalic, PERRL, EOMI ENT: Atraumatic, Airway patent, Mucous membranes moist Abdomen: Atraumatic, Soft, Non-tender Neurologic: Oriented X3, Speech NL, No motor deficits, No sensory deficits Neck: Atraumatic, Supple, Full range of motion Back: Atraumatic, Full range of motion Upper Extremity / MS: Atraumatic, Full range of motion Lower Extremity / Pelvis / MS: Atraumatic, Full range of motion Psychiatric: Affect NL, Mood NL Interpretation & Diagnostics Lab Results Interpretation Result Diagram: 03/17/17195803/17/171958 Test 03/17/17 19:59 White Blood Count 7.8th/mm3 (3.8-10.1) Red Blood Count 4.13mil/mm3 (3.90-5.20) Hemoglobin 12.6g/dL (12.0-15.6) Hematocrit 36.8% (35.0-46.0) Mean Corpuscular Volume 89.1fL (81-100) Mean Corpuscular Hemoglobin 30.5pg (27.0-35.0) Mean Corpuscular Hemoglobin Concent 34.2% (32.0-37.0) Red Cell Distribution Width 13.4% (12.3-15.4) Platelet Count 421bil/L (150-400) Neutrophils (%) (Auto) 61.1% (40-74) Lymphocytes (%) (Auto) 28.4% (14-46) Monocytes (%) (Auto) 5.8% (4-12) Eosinophils (%) (Auto) 3.9% (0-5) Basophils (%) (Auto) 0.5% (0-3) Sodium Level 139mEq/L (134-144) Potassium Level 3.5mEq/L (3.5-5.2) Chloride Level 99mEq/L (97-108) Carbon Dioxide Level 25mmol/L (18-29) Blood Urea Nitrogen 16mg/dL (6-20) Creatinine 0.68mg/dL (0.57-1.00) Estimat Glomerular Filtration Rate 147mL/min (>59) Glucose Level 84mg/dL (60-99) Calcium Level 9.3mg/dL (8.5-10.1) Total Bilirubin 0.3mg/dL (0.0-1.2) Aspartate Amino Transf (AST/SGOT) 27U/L (0-50) Alanine Aminotransferase (ALT/SGPT) 21U/L (0-32) Alkaline Phosphatase 84U/L (25-150) Total Protein 7.8g/dL (6.4-8.4) Albumin 4.2g/dL (3.4-5.0) Human Chorionic Gonadotropin, Qual Negative (Negative) Hold Shirley Top Tube Received (Received) Pulse Oximetry Interpretation Pulse Oximetry Interpretation: 99% on room air Pulse Oximetry: Pulse Ox normal Re-Eval/Medical Decision Med Decision/Clinical Course Patient shot up mask that she mixed with vinegar. She then felt like her throat was swelling. This prompted the visit. Her exam was benign. She is given Benadryl. She was observed. No signs of anaphylaxis. I am sure this cannot be healthy but I cannot imagine a specific antidote. She does have a history of high blood pressure and she supposed be on lisinopril. I will refill her lisinopril. Refer her for close outpatient follow-up. Source of Hx: Old records Re-Evaluation/Progress : Time of Eval: 20:35 Patient Status: Condition improved Re-Evaluation/Progress Note: Pt rechecked, whose condition has improved. The diagnosis and plan for discharge are discussed. The pt understands and agrees with the plan. All questions are addressed at this time. Counseled Regarding: Diagnosis, Lab results, Need for follow-up, When/why to return to ED Discharge & Departure Primary Impression: Allergic reaction Encounter type: initial encounter Qualified Code: T78.40XA - Allergy, unspecified, initial encounter Additional Impressions: Methamphetamine abuse Hypertension Hypertension type: unspecified secondary hypertension Qualified Code: I15.9 - Secondary hypertension, unspecified Disposition: Home Discharge Condition All VS Reviewed: Yes Condition: Stable Patient Instructions: General Allergic Reaction (ED), Hypertension (GEN), Methamphetamine Abuse (ED) Additional Instructions: Your labs were reassuring. Begin taking Lisinopril daily as prescribed. Call your primary care physician to arrange a follow up appointment next week for further evaluation. You will need to have follow up labs drawn in two weeks after initiating Lisinopril. Return to the emergency department if you develop any new or worsening symptoms. Referrals: Manjeet Jimenez MD Scribe Attestation Portions of this note were transcribed by Chata Davenport. I, Dr. Russ personally performed the history, physical exam and medical decision-making; I reviewed and confirmed the accuracy of the information in the transcribed note. copies to: Manjeet Jimenez MD, Todd P DO Mar 17, 2017 19:23 CHATA DAVENPORT Mar 17, 2017 19:32
[2017-03-17] MEDS ORDERED: diphenhydrAMINE 25 mg Capsule PO ONE (19:50)
[2017-03-17 20:03] LABS: BASOPHILS % (AUTO) 0.5 % (0-3); EOSINOPHILS % (AUTO) 3.9 % (0-5); MONOCYTES % (AUTO) 5.8 % (4-12); Mean Corpuscular Hemoglobin 30.5 pg (27.0-35.0); Mean Corpuscular Volume 89.1 fL (81-100); NEUTROPHILS % (AUTO) 61.1 % (40-74); Platelet Count 421 bil/L (150-400)
[2017-03-17] MEDS ORDERED: Dexamethasone 20 mg/2 mL Oral Solution PO ONE (20:05)
[2017-03-17 21:27] VITALS: BP 169/102; PULSE 100; RESP 18; O2SAT 98
== END 2017-03-17 21:29 | disposition home or self-care (01) ==
LOC: SED 19:11
DX: T43.621A Poisoning by amphetamines, accidental (unintentional), initial encounter (principal); R13.10 Dysphagia, unspecified; R20.8 Other disturbances of skin sensation; L29.9 Pruritus, unspecified; I15.9 Secondary hypertension, unspecified; F15.10 Other stimulant abuse, uncomplicated; X58.XXXA Exposure to other specified factors, initial encounter; Y93.9 Activity, unspecified; Y92.9 Unspecified place or not applicable; Y99.8 Other external cause status; F17.200 Nicotine dependence, unspecified, uncomplicated; Z88.0 Allergy status to penicillin
CPT/HCPCS: 36415; 80053; 84703; 85025; 96374; 99284; J1200